=== PATIENT | female | born 1955 | race Caucasian/White ===

== ENCOUNTER 2022-06-14 21:16 | Emergency (ER) | payer SELFPAY ==
[~2022-06-14] VITALS: Ht 167.6 cm; Wt 54.0 kg
[2022-06-15 03:10] VITALS: BP 129/89
== END 2022-06-15 03:30 | disposition home or self-care (01) ==
LOC: ER 21:16
DX: F10.129 Alcohol abuse with intoxication, unspecified (principal); Y90.9 Presence of alcohol in blood, level not specified; M54.9 Dorsalgia, unspecified; G89.29 Other chronic pain; I10 Essential (primary) hypertension
CPT/HCPCS: 99283